=== PATIENT | female | born 1990 | race Caucasian/White ===

== ENCOUNTER 2020-11-23 12:10 | Emergency (ER) | payer OTHER, SELFPAY ==
[2020-11-23 12:11] VITALS: BP 146/89; PULSE 87; RESP 20; TEMP 36.6; O2SAT 98; BMI 47.0
[2020-11-23 12:16] VITALS: BMI 47.0
--- NOTE | 2020-11-23 12:18 | CT_ITS ---
PROCEDURE: CT ABDOMEN PELVIS WO CON CLINICAL INDICATION: ADB PAIN COMPARISON: No exams were available for comparison TECHNIQUE: Axial images obtained with sagittal and coronal reformats. All CT scans at the facility use one or more dose reduction, viz: automated exposure control, ma/kV adjustment per patient size (including targeted exams where dose is matched to indication, i.e. head), or iterative reconstruction technique. FINDINGS: Lower thorax: The lower lung colvin are clear and there is no pleural fluid. ABDOMEN: Liver: No masses or biliary dilatation. Gallbladder: The gallbladder is mildly distended and there is a diffuse subtle heterogenic appearance to the bile within the gallbladder suggesting possibility of biliary sludge and in view of the patient's history suggest a follow-up ultrasound right upper quadrant for additional evaluation. No obvious calcified gallstones are seen. Pancreas: No masses or peripancreatic fluid collections. Spleen: Normal in size with a couple of calcifications noted Adrenals: unremarkable Kidneys/ureters: unremarkable ABDOMEN & PELVIS: Stomach bowel: The stomach is moderately distended with ingested fluid and food particles. There are scattered foci of high density within the stomach suggesting possibly ingested antacids. The somewhat hydropic appearing gallbladder also suggest possible biliary dyskinesia in view of the stomach being distended with food particles. The small bowel appears normal. The patient is post appendectomy with surgical clips seen adjacent to the cecum. There is moderate scattered stool and gas seen throughout the colon. Peritoneum: No abnormal fluid collections. No obvious inflammatory changes. No free air. Lymph nodes: No enlarged lymph nodes apparent. Vasculature: No evidence of abdominal aortic aneurysm. No retroperitoneal hemorrhage evident. Bones: No acute fracture PELVIS: Reproductive: The uterus is normal in size and in the midline. Bladder: Nondistended. No obvious stones or masses. Appendix: Post appendectomy IMPRESSION: Probable abnormal gallbladder with findings suggesting combination of biliary dyskinesia and probable biliary sludge and suggest follow-up ultrasound right upper quadrant for additional evaluation. No other significant abdominal or pelvic pathology identified Dictated by: Dr. Deshawn Berry MD 11/23/2020 13:14 Dr. Deshawn Berry MD in [place] 11/23/2020 13:14
--- NOTE | 2020-11-23 12:19 | HMH.EDGENADL ---
ED Disposition Clinical Impression: Biliary colic Disposition: Home, Self-Care Condition on Discharge: Good Instructions: DI for General Gallbladder Conditions, Fat-Restricted Diet Additional Instructions: Low-fat diet. Percocet as needed for pain. Zofran as needed for nausea. See Dr. Comer in his office tomorrow. Have blood drawn at the lab here before seeing him in his office. Additional instructions for ABDOMINAL PAIN: Return immediately if worsening abdominal pain, vomiting, shortness of breath, fever, vomiting of blood or abdominal distention. Additional instructions for CONTROLLED SUBSTANCES: You have been prescribed a medication that is a controlled substance. Controlled substances include pain medications known as opiates and sedative nerve medications known as benzodiazepines. Tramadol, fioricet, and gabapentin are also controlled substances. Some common opiates include: Codeine (such as Tylenol #3) Hydrocodone (Vicodin, Lortab, Lorcet, [place]) Oxycodone (Percocet, Percodan, Oxycodone, Oxy IR) Some common benzodiazepines include: Diazepam (Valium) Lorazepam (Ativan) Alprazolam (Xanax) Clonazepam (Klonopin) Oxazepam (Serax) All of these controlled substances are highly addictive and frequently abused. Misuse can and frequently does lead to addiction as well as overdose and . Medication should be stored in a locked cabinet or other secure storage unit. Do not store the medication in a motor vehicle. Short term supplies, 3 days or less, are prescribed because of the highly addictive nature of the medication. Any of the controlled substance medication NOT taken should be disposed of properly and NOT SAVED. The recommended method of disposing of unused medications is: Place the medicines in a sealable plastic bag. If the medicine is a solid, crush it or add water to dissolve it. Add something undesirable (cat litter, coffee grounds, etc.) Dispose of sealed bag in household trash Do not flush or pour unused medicines down a sink or drain. Controlled substances should not be shared, given away or sold. Because of the addictive nature and frequent abuse, these medications are sometimes stolen. These medications should be kept in a safe place where they cannot be stolen. Do not keep them in your car or purse. Lost or stolen prescriptions for controlled substances WILL NOT BE REFILLED in this emergency department, regardless of whether a police report was filed. Prescriptions: Oxycodone HCl/Acetaminophen [Percocet 5/325mg tablet] 1 tab PO Q6HP PRN #10 tablet PRN Reason: Moderate To Severe Pain Transmission Status: Sent to [facility] Ondansetron [Zofran 4mg ODT] 4 mg PO TIDP PRN #10 tab.rapdis PRN Reason: Nausea And Vomiting Transmission Status: Pending to [facility] Referrals: PCP,No [Primary Care Provider] - Aleksandr Comer MD [Staff Physician] - - Critical Care Critical Care Time: No Attestation: On 11/23/20, the high probability of a clinically significant, sudden or life threatening deterioration of the following system(s) required my full and direct attention, intervention and personal management. The time I documented below is in addition to time spent performing reported procedures but includes the following listed in this critical care notation. Medical Decision Making - Jhon Inquiry Pt receiving controlled substance: Yes Jhon was queried for this patient: Yes Risks and benefits of using a controlled substance: were discussed with pt by me Vital Signs: 11/23/20 12:11 Temperature 97.8 F Temperature Source Oral Pulse Rate [Radial] 87 Respiratory Rate 20 Blood Pressure [Right Arm] 146/89 H Blood Pressure Mean [Right Arm] 108 Blood Pressure Position [Right Arm] Sitting 02 Sat by Pulse Oximetry 98 Oxygen Delivery Method Room Air - Lab Data Lab Results 11/23/20 12:20: WBC 10.2, RBC 5.34, Hgb 13.4, Hct 42.2, MCV 79.0 L,
[2020-11-23 12:29] LABS: Basophils # 0.1 K/mm3 (0-0.2); Basophils % 0.5 % (0.1-2.0); Eosinophils # 0.2 K/mm3 (0.0-0.4); Eosinophils % 1.5 % (0.1-12.0); Hematocrit 42.2 % (37.0-47.0); Hemoglobin 13.4 g/dL (12.2-16.2); Lymphocytes % 19.8 % (10-50); Mean Corpuscular HGB Conc 31.8 g/dL (31.8-35.4); Mean Corpuscular Hemoglobin 25.1 pg (27.0-31.2); Mean Platelet Volume 6.9 fl (7.4-10.4); Monocytes # 0.5 K/mm3 (0.1-1.0); Monocytes % 5.2 % (1.7-9.3); Neutrophils # 7.5 K/mm3 (1.8-7.8); Neutrophils % 72.9 % (37.0-80.0); Platelet Count 438 K/mm3 (142-424); Red Blood Count 5.34 M/mm3 (4.20-5.40); Red Cell Distribution Width 14.6 % (11.5-17.5); White Blood Count 10.2 K/mm3 (4.8-10.8)
[2020-11-23 12:35] LABS: Chloride 102 mmol/L (98-107); Potassium 3.9 mmoL/L (3.5-5.1); Sodium 139 mmol/L (136-145)
[2020-11-23 12:37] LABS: Alanine Aminotransferase 197 U/L (12-78); Amylase 49 U/L (30-110); Aspartate Amino Transferase 140 U/L (14-36); Blood Urea Nitrogen 8 mg/dl (7-17); Creatinine Clearance Estimated 116 mL/min (50-200); Estimated Glomerular Filt Rate 100 ml/min (>60); GFR (African American) 121 ML/MIN (>60)
[2020-11-23 12:38] LABS: Albumin Level 4.9 g/dl (3.5-5.0); Alkaline Phosphatase 398 U/L (38-126); Anion Gap 12.9 mEq/L (5-15); Bilirubin,Total 1.1 mg/dl (0.2-1.3); Calcium 10.2 mg/dl (8.4-10.2); Carbon Dioxide 28 mmol/L (22.0-30.0); Glucose 125 mg/dl (74-100); Lipase 142 U/L (23-300); Total Protein,Serum 9.9 g/dl (6.3-8.2)
[2020-11-23 12:50] LABS: HCG Qualitative, Serum Negative (Negative)
--- NOTE | 2020-11-23 13:42 | PC.NURSE ---
spoke with Dr Comer
[2020-11-23 13:44] VITALS: BP 126/78; PULSE 80; RESP 18; O2SAT 97
[2020-11-23 14:16] VITALS: BP 122/74; PULSE 87; RESP 16; TEMP 36.6; O2SAT 98
== END 2020-11-23 14:17 | disposition home or self-care (01) ==
PROVIDERS: Emergency Provider Emergency Medicine
DX: K80.50 Calculus of bile duct without cholangitis or cholecystitis without obstruction (principal); F17.290 Nicotine dependence, other tobacco product, uncomplicated
CPT/HCPCS: 74176; 80053; 82150; 83690; 84703; 85025; 96374; 96375; 99283; J2405

== ENCOUNTER → 2020-11-24 09:12 | Outpatient (CLI) | payer OTHER, SELFPAY ==
[2020-11-24 09:43] LABS: Basophils # 0.1 K/mm3 (0-0.2); Basophils % 0.6 % (0.1-2.0); Eosinophils # 0.2 K/mm3 (0.0-0.4); Eosinophils % 2.5 % (0.1-12.0); Hematocrit 41.3 % (37.0-47.0); Hemoglobin 13.1 g/dL (12.2-16.2); Lymphocytes # 2.3 K/mm3 (0.7-4.5); Lymphocytes % 27.8 % (10-50); Mean Corpuscular HGB Conc 31.8 g/dL (31.8-35.4); Mean Corpuscular Hemoglobin 25.3 pg (27.0-31.2); Mean Corpuscular Volume 79.4 fl (81-99); Mean Platelet Volume 7.4 fl (7.4-10.4); Monocytes # 0.4 K/mm3 (0.1-1.0); Monocytes % 5.3 % (1.7-9.3); Neutrophils # 5.3 K/mm3 (1.8-7.8); Neutrophils % 63.8 % (37.0-80.0); Platelet Count 454 K/mm3 (142-424); Red Cell Distribution Width 14.6 % (11.5-17.5); White Blood Count 8.3 K/mm3 (4.8-10.8)
[2020-11-24 10:02] LABS: Chloride 105 mmol/L (98-107); Potassium 4.4 mmoL/L (3.5-5.1); Sodium 140 mmol/L (136-145)
[2020-11-24 10:04] LABS: Blood Urea Nitrogen 9 mg/dl (7-17); Estimated Glomerular Filt Rate 75 ml/min (>60); GFR (African American) 90 ML/MIN (>60)
[2020-11-24 10:05] LABS: Alanine Aminotransferase 226 U/L (12-78); Albumin Level 4.5 g/dl (3.5-5.0); Albumin/Globulin Ratio 1.1 (1.1-1.8); Alkaline Phosphatase 346 U/L (38-126); Anion Gap 9.4 mEq/L (5-15); Aspartate Amino Transferase 127 U/L (14-36); Bilirubin,Total 0.6 mg/dl (0.2-1.3); Carbon Dioxide 30 mmol/L (22.0-30.0); Globulin 4.1 g/dL (1.3-3.2); Glucose 107 mg/dl (74-100); Total Protein,Serum 8.6 g/dl (6.3-8.2)
[2020-11-24 10:06] LABS: Alanine Aminotransferase 220 U/L (12-78); Aspartate Amino Transferase 125 U/L (14-36); Bilirubin,Unconjugated 0.4 mg/dL (0.0-1.1)
[2020-11-24 10:07] LABS: Albumin Level 4.6 g/dl (3.5-5.0); Alkaline Phosphatase 347 U/L (38-126); Bilirubin,Direct 0.2 mg/dl (0.0-0.4); Bilirubin,Indirect 0.4 mg/dL (0.0-0.9); Bilirubin,Total 0.6 mg/dl (0.2-1.3); Total Protein,Serum 8.6 g/dl (6.3-8.2)
== END ==
PROVIDERS: Visit Provider Surgery
DX: K80.50 Calculus of bile duct without cholangitis or cholecystitis without obstruction (principal)
CPT/HCPCS: 36415; 80053; 80076; 85025

== ENCOUNTER → 2020-11-26 14:15 | Outpatient (CLI) | payer OTHER, SELFPAY ==
[2020-11-26 14:42] LABS: Urine Pregnancy, HCG Qual. Negative (Negative)
[2020-11-26 16:40] LABS: Coronavirus 19 IgG Antibody Positive (Negative); Coronavirus 19 IgM Antibody Negative (Negative)
== END ==
PROVIDERS: Visit Provider Surgery
DX: Z01.818 Encounter for other preprocedural examination (principal); Z20.822 Contact with and (suspected) exposure to COVID-19; Z86.16 Personal history of COVID-19; K80.50 Calculus of bile duct without cholangitis or cholecystitis without obstruction
CPT/HCPCS: 36415; 81025; 86328

== ENCOUNTER 2020-11-28 06:08 | Day surgery (SDC) | payer OTHER, SELFPAY ==
[2020-11-25 10:25] VITALS: BMI 47.0
[2020-11-28] VITALS (14 sets, daily range): BP systolic 115–138; BP diastolic 67–89; PULSE 53–94; RESP 12–18; TEMP 36.2–43; O2SAT 94–100
--- NOTE | 2020-11-28 08:00 | HMH.ANESCL ---
[facility] Anesthesia Checklist - Structural Data Admitted From: Home Planned Operative Procedure/s: elfego rush Consent for Planned Operative Procedure(s) Verified: Yes - Additional verifications Anesthesia Reactions: No Hx Blood Transfusions: No Blood Transfusion Reaction: No - Airway Assessment C-Spine Mobility Assessed: Yes TMJ Mobility Assessed: Yes Dentition: Poor Dentition - Neurological Assessment Level of Consciousness: Awake, Alert, Appropriate - Anesthesia Plan Anesthesia Risk discussed: Yes Anesthesia Plan: Verified ASA Class: III Anesthesia Type: General [facility] History I have reviewed the patient's past medical history: Yes Medical History: Reports:: MRSA (chest) Denies:: Cancer, Diabetes Mellitus Type 1, Diabetes Mellitus Type 2, Seizures *Have you ever received a pneumonia vaccine?: No *Have you received a flu vaccine this season?: No Other Medical History: Denies: Blood Transfusion Reaction Anesthesia experience/problems:: none Laterality Cases: Bilateral: Myringotomy (Ear Tubes), Tonsillectomy Other Surgeries: Yes: Appendectomy - *Social History Last grade of school completed: Advanced degree Smoking Status: Former smoker Tobacco Type: e-cigarettes Alcohol Intake: never Alcohol Intake Frequency:: holidays/special occasions only Substance Use Type: denies use *Occupational Status:: employed Housing: house Household Members: spouse *Travel in the last 8 weeks: None Family Hx:: Cancer, Diabetes, Hyperlipidemia, Hypertension
--- NOTE | 2020-11-28 08:57 | HMH.OPNOTE ---
Date of procedure: 11/28/20 Pre-op Diagnosis:: Gallbladder hydrops Post-op Diagnosis:: Gallbladder hydrops Acute on chronic calculus cholecystitis Procedure performed:: Laparoscopic cholecystectomy Surgeon:: Aleksandr Comer MD WASH RACK OPERATOR:: Sami Oseguera Anesthesia: GETA Estimated blood loss (mL): 15 Operative findings:: Hydropic gallbladder Severe pericholecystic fat stranding Infundibular thickening Operative note:: After informed consent was obtained, the patient was taken to the operating room and placed in the supine position. General anesthesia was induced and the abdomen was prepped and draped in a sterile fashion. After infiltration with local anesthetic an infraumbilical incision was made. A Veress needle was placed in position. The abdomen was insufflated. A 5 mm optical trocar was placed in position. Under direct visualization, a 12 mm trocar was placed in the subxiphoid position and 2 additional 5 mm trocars were placed in the right upper quadrant. The gallbladder was elevated up and over the liver margin. Severe pericholecystic fat stranding was noted. Thickening and and around the infundibular region was noted. The decision was made to proceed with a dome down approach secondary to these findings. A small window was made posterior to the infundibulum. Harmonic martine were utilized to transect the gallbladder from the liver margin. Endoloops (x2) were then utilized to control the infundibulum/cystic duct. The infundibulum was transected with harmonic martine. The gallbladder was placed in a retrieval bag and removed through the subxiphoid trocar site. The right upper quadrant was thoroughly irrigated. No active bleeding or bile leak was noted. Fascia at the subxiphoid trocar site was reapproximated utilizing 0 Ethibond. The remaining trocars were removed. All wounds were irrigated and skin was closed with 4-0 Monocryl in a subcuticular fashion. Steri-Strips were applied. The patient's anesthetic agents were reversed and extubation was completed prior to transfer to recovery in stable condition. Condition: stable Disposition: PACU Specimens:: Gallbladder Complications:: No immediate
--- NOTE | 2020-11-28 09:04 | HMH.ANESI ---
[facility] Anesthesia Record Part I Intake, IV Amount: 2,000 Estimated blood loss (mL): 0 Urine output (mL): 0 Blood Pressure: 134/77 SaO2: 94 Pulse Rate: 93 Respiratory Rate: 12 Temperature: 98.2 F Patient is:: Awake, Stable Stable to PACU at:: 09:00
--- NOTE | 2020-12-02 09:09 | P.PN_ITS ---
[facility] Anesthesia Record Part II Discharge Time: 09:39 Destination: Surgical Day Care (OP Surgery) PACU nurse assessment reviewed?: Yes Patient Condition:: Good Anesthesia Complications:: None Swallowing reflex intact?: Yes Cyanosis?: No Blood Pressure: 129/75 Pulse Rate: 61 Temperature: 98.2 F Mental Status: Alert & Oriented Pain level:: 5 Nausea and/or vomitting:: None Intake, IV Amount: 0
[2020-12-02 09:10] VITALS: BP 129/75; PULSE 61; TEMP 36.8
== END 2020-11-28 10:50 | disposition home or self-care (01) ==
PROVIDERS: Visit Provider Surgery
PROC: 0FT44ZZ Resection of Gallbladder, Percutaneous Endoscopic Approach (ICD-10-PCS; CPT 47562; principal; 2020-11-28 07:30)
DX: K80.12 Calculus of gallbladder with acute and chronic cholecystitis without obstruction; K82.1 Hydrops of gallbladder; Z86.14 Personal history of Methicillin resistant Staphylococcus aureus infection; Z90.49 Acquired absence of other specified parts of digestive tract; Z87.891 Personal history of nicotine dependence; Z80.9 Family history of malignant neoplasm, unspecified; Z83.3 Family history of diabetes mellitus; Z83.438 Family history of other disorder of lipoprotein metabolism and other lipidemia; Z82.49 Family history of ischemic heart disease and other diseases of the circulatory system
CPT/HCPCS: 47562; 96374; J2405; J2710

== ENCOUNTER 2023-12-21 20:02 | Outpatient (CLI) | payer OTHER, SELFPAY ==
[2023-12-21 19:20] LABS: Alanine Aminotransferase 38 U/L (12-78); Albumin Level 4.4 g/dl (3.5-5.0); Albumin/Globulin Ratio 1.3 (1.1-1.8); Alkaline Phosphatase 121 U/L (38-126); Anion Gap 14.7 mEq/L (5-15); Aspartate Amino Transferase 34 U/L (14-36); Bilirubin,Total 0.2 mg/dl (0.2-1.3); Blood Urea Nitrogen 10 mg/dl (7-17); Calcium 9.5 mg/dl (8.4-10.2); Carbon Dioxide 26 mmol/L (22.0-30.0); Chloride 104 mmol/L (98-107); Chol/HDL Ratio 3.1 (1-3.5); Cholesterol 165 mg/dl (140-200); Estimated Glomerular Filt Rate 98 ml/min (>60); GFR (African American) 118 ML/MIN (>60); Globulin 3.4 g/dL (1.3-3.2); Glucose 84 mg/dl (74-100); HDL Cholesterol 53 mg/dl (40-60); Potassium 4.7 mmoL/L (3.5-5.1); Sodium 140 mmol/L (136-145); Total Protein,Serum 7.8 g/dl (6.3-8.2); Triglycerides 109 mg/dl (30-150); VLDL Cholesterol 22 mg/dL (0-40)
[2023-12-21 19:30] LABS: Direct LDL Cholesterol 71.87 mg/dL (100-129)
[2023-12-21 19:46] LABS: Basophils # 0.1 K/mm3 (0-0.2); Basophils % 0.9 % (0.1-2.0); Eosinophils # 0.3 K/mm3 (0.0-0.4); Eosinophils % 2.9 % (0.1-12.0); Hematocrit 40.3 % (37.0-47.0); Hemoglobin 12.5 g/dL (12.2-16.2); Lymphocytes # 2.8 K/mm3 (0.7-4.5); Lymphocytes % 28.9 % (10-50); Mean Corpuscular HGB Conc 31.1 g/dL (31.8-35.4); Mean Corpuscular Hemoglobin 24.3 pg (27.0-31.2); Mean Corpuscular Volume 78.3 fl (81-99); Mean Platelet Volume 7.7 fl (7.4-10.4); Monocytes # 0.6 K/mm3 (0.1-1.0); Monocytes % 6.2 % (1.7-9.3); Neutrophils # 5.9 K/mm3 (1.8-7.8); Neutrophils % 61.2 % (37.0-80.0); Platelet Count 443 K/mm3 (142-424); Red Blood Count 5.14 M/mm3 (4.20-5.40); Red Cell Distribution Width 16.5 % (11.5-17.5); White Blood Count 9.7 K/mm3 (4.8-10.8)
[2023-12-21 19:49] LABS: Thyroid Stimulating Hormone 1.69 uIU/mL (0.465-4.68)
[2023-12-21 19:54] LABS: 25-OH Vitamin D, Total 13.5 ng/mL (30-100)
[2023-12-21 20:15] LABS: Hemoglobin A1C 5.8 % (4.0-6.0)
== END 2023-12-21 23:59 ==
LOC: LAB.DROPOF 20:03
PROVIDERS: PCP Physician Assistant; Visit Provider Physician Assistant
DX: R03.0 Elevated blood-pressure reading, without diagnosis of hypertension (principal); E55.9 Vitamin D deficiency, unspecified; Z68.43 Body mass index [BMI] 50.0-59.9, adult
CPT/HCPCS: 80053; 80061; 82306; 83036; 84443; 85025

== ENCOUNTER 2024-12-11 14:40 | Outpatient (CLI) | payer OTHER, SELFPAY ==
[2024-12-11] MEDS: SODIUM CHLORIDE 0.9% 50ML BAG 50 ML IV (14:54)
[2024-12-11] MEDS: IRON SUCROSE COMPLEX 200 MG in 0.9 % SODIUM CHLORIDE 100 ML 220 MG IV (14:54)
[2024-12-11 14:56] VITALS: BP 115/82; PULSE 96; RESP 18; O2SAT 99
[2024-12-11 15:35] VITALS: BP 104/83; PULSE 89; RESP 18; O2SAT 99
== END 2024-12-11 15:35 | disposition home or self-care (01) ==
LOC: INF 14:41
PROVIDERS: PCP Physician Assistant; Visit Provider Physician Assistant
DX: D50.9 Iron deficiency anemia, unspecified (principal)
CPT/HCPCS: 96365; J1756

== ENCOUNTER 2024-12-12 14:48 | Outpatient (CLI) | payer OTHER, SELFPAY ==
[2024-12-12 15:00] VITALS: BP 127/84; PULSE 78; RESP 18; TEMP 36.8; O2SAT 99
[2024-12-12] MEDS: SODIUM CHLORIDE 0.9% 50ML BAG 50 ML IV (15:00)
[2024-12-12] MEDS: IRON SUCROSE COMPLEX 200 MG in 0.9 % SODIUM CHLORIDE 100 ML 220 MG IV (15:00)
[2024-12-12 15:30] VITALS: BP 114/66; PULSE 72; RESP 18; O2SAT 99
== END 2024-12-12 15:44 | disposition home or self-care (01) ==
LOC: INF 14:48
PROVIDERS: PCP Physician Assistant; Visit Provider Physician Assistant
DX: D50.9 Iron deficiency anemia, unspecified (principal)
CPT/HCPCS: 96365; J1756

== ENCOUNTER 2024-12-14 14:39 | Outpatient (CLI) | payer OTHER, SELFPAY ==
[2024-12-14 14:55] VITALS: BP 125/67; PULSE 94; RESP 18; TEMP 36.2; O2SAT 99
[2024-12-14] MEDS: IRON SUCROSE COMPLEX 200 MG in 0.9 % SODIUM CHLORIDE 100 ML 220 MG IV (14:55)
[2024-12-14] MEDS: SODIUM CHLORIDE 0.9% 50ML BAG 50 ML IV (14:55)
[2024-12-14 15:39] VITALS: BP 101/61; PULSE 84; RESP 18; O2SAT 99
== END 2024-12-14 15:39 | disposition home or self-care (01) ==
LOC: INF 14:39
PROVIDERS: PCP Physician Assistant; Visit Provider Physician Assistant
DX: D50.9 Iron deficiency anemia, unspecified (principal)
CPT/HCPCS: 96365; J1756

== ENCOUNTER 2024-12-18 14:41 | Outpatient (CLI) | payer OTHER, SELFPAY ==
[2024-12-18 14:58] VITALS: BP 138/68; PULSE 88; RESP 20; TEMP 36.6; O2SAT 99
[2024-12-18] MEDS: SODIUM CHLORIDE 0.9% 50ML BAG 50 ML IV (14:58)
[2024-12-18] MEDS: IRON SUCROSE COMPLEX 200 MG in 0.9 % SODIUM CHLORIDE 100 ML 220 MG IV (14:58)
[2024-12-18 15:40] VITALS: BP 124/70; PULSE 89; RESP 18; O2SAT 98
== END 2024-12-18 15:40 | disposition home or self-care (01) ==
LOC: INF 14:43
PROVIDERS: PCP Physician Assistant; Visit Provider Physician Assistant
DX: D50.9 Iron deficiency anemia, unspecified (principal)
CPT/HCPCS: 96365; J1756

== ENCOUNTER 2024-12-21 14:43 | Outpatient (CLI) | payer OTHER, SELFPAY ==
[2024-12-21 14:52] VITALS: BP 119/61; PULSE 73; RESP 18; TEMP 36.7; O2SAT 98
[2024-12-21] MEDS: IRON SUCROSE COMPLEX 200 MG in 0.9 % SODIUM CHLORIDE 100 ML 220 MG IV (15:20)
[2024-12-21 15:50] VITALS: BP 125/67; PULSE 91; RESP 18; O2SAT 97
[2024-12-21] MEDS: SODIUM CHLORIDE 0.9% 50ML BAG 50 ML IV (15:52)
== END 2024-12-21 15:50 | disposition home or self-care (01) ==
LOC: INF 14:44
PROVIDERS: PCP Physician Assistant; Visit Provider Physician Assistant
DX: D50.9 Iron deficiency anemia, unspecified (principal)
CPT/HCPCS: 96365; J1756